=== PATIENT | male | born 1960 | race Caucasian/White ===

== ENCOUNTER → 2017-07-01 | Outpatient (REF) ==
[2014-06-27 16:00] VITALS: BMI 42.4
[~2017-07-01] MED LIST: METO25TA93 PO
== END ==
LOC: AUD 09:40
PROVIDERS: ATTEND Family Medicine
DX: Z01.10 Encounter for examination of ears and hearing without abnormal findings (principal)
CPT/HCPCS: 92552

== ENCOUNTER 2017-12-27 20:59 | Emergency (ER) | payer BC ==
[2014-06-27 16:00] VITALS: Wt 145.2 kg
[2017-12-27] MEDS ORDERED: AMOX-559 PO (21:14)
[2017-12-27] MEDS ORDERED: CARV12.578 PO (21:14)
[2017-12-27] MEDS ORDERED: OXYMETAZOLINE 0.05% 30 ML BTL SCH (21:15)
[2017-12-27] MEDS ORDERED: LIDO/EPI 1% MDV 1:100,000 20ML INFIL ONE (21:16)
[2017-12-27] MEDS ORDERED: LISI5TAB25 PO (21:23)
[2017-12-27] MEDS ORDERED: DRON400T4 PO (21:23)
[2017-12-27] MEDS ORDERED: FURO40TA35 PO (21:23)
[2017-12-27] MEDS ORDERED: SULF-198 PO (21:23)
--- NOTE | 2017-12-27 21:27 | ER Report ---
History and Physical Time Seen By MD: 21:10 Hx. 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 1 episode last night that he was able to stop at home. HPI/ROS CHIEF COMPLAINT: Epistaxis] HISTORY OF PRESENT ILLNESS: Patient presents with ongoing bleed 1 hour. Patient is on Zarrella toe and has been for 1-1/2 years for atrial fibrillation. Patient had not had prior nosebleeds before yesterday. Of note he was recently placed on carvedilol after cardioversion and Bactrim, Augmentin for hand wound. Patient reports bleeding from right naris yesterday and that he was able to control at home. Patient states that he has had bleeding from left naris for the last hour and has not been able to control this at home. Patient believes that he has lost less than 1 cup of blood. He feels mildly lightheaded however does not have chest pain, trouble breathing, headache, and denies recent injury. He denies other bleeding or bruising REVIEW OF SYSTEMS: Constitutional: No fever, no chills. Eyes: No discharge. ENT: No sore throat. Cardiovascular: No chest pain, no palpitations. Respiratory: No cough, no shortness of breath. Gastrointestinal: No abdominal pain, no vomiting. Genitourinary: No hematuria. Musculoskeletal: No back pain. Skin: No rashes. Neurological: No headache. Remainder of the 14 system rev: Yes Allergies: Coded Allergies: No Known Drug Allergies (Unverified , 12/27/17) Home Meds Reported Medications Dronedarone Hcl (MULTAQ) 400 Mg Tablet, 400 MG PO DAILY 12/27/17 Furosemide (LASIX) 40 Mg Tablet, 1 TAB PO DAILY, TAB 12/27/17 Sulfamethoxazole/Trimet 800-160 Mg Tab (BACTRIM DS TABLET) 1 Each Tablet, 1 TAB PO Q12H, TAB 12/27/17 Lisinopril (LISINOPRIL) 5 Mg Tablet, 5 MG PO QDAY, TAB 12/27/17 Carvedilol (CARVEDILOL) 12.5 Mg Tablet, 12.5 MG PO BID, #10 TAB 12/27/17 Amoxicillin/Pot Clav 875-125 Mg Tab (AUGMENTIN 875-125 TABLET) 1 Each Tablet, 1 TAB PO Q12H, TAB 12/27/17 Discontinued Reported Medications Metoprolol Tartrate (METOPROLOL TARTRATE) 25 Mg Tablet, 1 TAB PO DAILY, TAB 12/23/14 Reviewed Nurses Notes: Yes Old Medical Records Reviewed: Yes Hx Smoking: No Constitutional Vital Sign - Last 24 Hours 12/27/17 12/27/17 12/27/17 12/27/17 21:02 21:04 21:04 21:39 Temp 97.9 Pulse 64 65 65 Resp 16 B/P (MAP) 145/84 (104) 145/84 Pulse Ox 90 89 90 O2 Delivery Room Air 12/27/17 12/27/17 21:44 21:47 Pulse 64 Resp 12 B/P (MAP) 135/76 (95) Pulse Ox 90 Physical Exam General Appearance: [The patient is alert, has no immediate need for airway protection and no signs of toxicity.] [ ] Eyes: Pupils equal and round no pallor or injection. ENT, Mouth: Mucous membranes are moist. Pt with brisk venous bleed primarily from left nare. Note blood in r nare. No polyps noted. Bleeding is into post pha rynx but pt tolerating secretions Respiratory: There are no retractions, lungs are clear to auscultation. Cardiovascular: Regular rate and rhythm. Neurological: alert, oriented Skin: Warm and dry, no rashes. Musculoskeletal: Neck is supple non tender. Extremities are nontender, nonswollen and have full range of motion. [ ] DIFFERENTIAL DIAGNOSIS: After history and physical exam differential diagnosis was considered for significant blood loss, coagulopathy, medication interaction or other emergent cause of bleeding. Medical Decision Making Data Points Result Diagram: 12/27/17214312/27/172143 Laboratory Hematology Test 12/27/17 21:44 Red Blood Count 4.52 M/uL (4.00-5.60) Mean Corpuscular Volume 84.9 fL (80.0-96.0) Mean Corpuscular Hemoglobin 29.8 pg (26.0-33.0) Mean Corpuscular Hemoglobin Concent 35.1 g/dL (32.0-36.0) Red Cell Distribution Width 13.7 % (11.5-14.5) Mean Platelet Volume 6.9 fL (7.2-11.1) Neutrophils (%) (Auto) 68.5 % (39.4-72.5) Lymphocytes (%) (Auto) 14.4 % (17.6-49.6) Monocytes (%) (Auto) 10.2 % (4.1-12.4) Eosinophils (%) (Auto) 4.1 % (0.4-6.7) Basophils (%) (Auto) 2.8 % (0.3-1.4) Nucleated RBC Relative Count (auto) 0.1 /100WBC Neutrophils # (Auto) 3.1 K/uL (2.0-7.4) Lymphocytes # (Auto) 0.6 K/uL (1.3-3.6) Monocytes # (Auto) 0.5 K/uL (0.3-1.0) Eosinophils # (Auto) 0.2 K/uL (0.0-0.5) Basophils # (Auto) 0.1 K/uL (0.0-0.1) Nucleated RBC Absolute Count (auto) 0.00 K/uL Prothrombin Time 15.8 seconds (12.0-14.4) Prothromb Time International Ratio 1.25 Activated Partial Thromboplast Time 40 seconds (23-35) Sodium Level 139 mmol/L (137-145) Potassium Level 3.9 mmol/L (3.5-5.0) Chloride Level 106 mmol/L (98-107) Carbon Dioxide Level 23 mmol/L (22-30) Blood Urea Nitrogen 20 mg/dl (9-21) Creatinine 1.30 mg/dl (0.66-1.25) Glomerular Filtration Rate Calc 56.9 Random Glucose 101 mg/dl (75-110) Calcium Level 9.5 mg/dl (8.4-10.2) Chemistry Test 12/27/17 21:44 White Blood Count 4.5 k/uL (4.5-11.0) Red Blood Count 4.52 M/uL (4.00-5.60) Hemoglobin 13.5 g/dL (14.0-18.0) Hematocrit 38.4 % (42.0-52.0) Mean Corpuscular Volume 84.9 fL (80.0-96.0) Mean Corpuscular Hemoglobin 29.8 pg (26.0-33.0) Mean Corpuscular Hemoglobin Concent 35.1 g/dL (32.0-36.0) Red Cell Distribution Width 13.7 % (11.5-14.5) Platelet Count 165 K/uL (150-450) Mean Platelet Volume 6.9 fL (7.2-11.1) Neutrophils (%) (Auto) 68.5 % (39.4-72.5) Lymphocytes (%) (Auto) 14.4 % (17.6-49.6) Monocytes (%) (Auto) 10.2 % (4.1-12.4) Eosinophils (%) (Auto) 4.1 % (0.4-6.7) Basophils (%) (Auto) 2.8 % (0.3-1.4) Nucleated RBC Relative Count (auto) 0.1 /100WBC Neutrophils # (Auto) 3.1 K/uL (2.0-7.4) Lymphocytes # (Auto) 0.6 K/uL (1.3-3.6) Monocytes # (Auto) 0.5 K/uL (0.3-1.0) Eosinophils # (Auto) 0.2 K/uL (0.0-0.5) Basophils # (Auto) 0.1 K/uL (0.0-0.1) Nucleated RBC Absolute Count (auto) 0.00 K/uL Prothrombin Time 15.8 seconds (12.0-14.4) Prothromb Time International Ratio 1.25 Activated Partial Thromboplast Time 40 seconds (23-35) Glomerular Filtration Rate Calc 56.9 Calcium Level 9.5 mg/dl (8.4-10.2) Coagulation Test 12/27/17 21:44 Prothrombin Time 15.8 seconds Prothromb Time International Ratio 1.25 Activated Partial Thromboplast Time 40 seconds ED Course/Re-evaluation ED Course Patient presents with brisk epistaxis. This is [place] by the fact he is on xarelto as well as having been started on Multaq 2 days ago as he had cardioversion. Of note, mild tach can't increased bleeding from Xarelto. In ED after administration of Afrin infused with 2 mL's of 1% lidocaine and epi, patient ultimately has control of epistaxis. On my reevaluation, there is no active bleeding, no polyps, and no anterior area that can be cauterized. I offered nasal packing due to risk for ongoing bleeding versus discharge and return if he has uncontrolled bleeding. Patient refuses packing at this point. I consult it patient's cardiology group for recommendation regarding medication interaction, and slight coagulopathy that is noted on labs. On-call timber feller recommended holding xarelto after discussion of risks and benefits with patient, which I did and follow-up with ENT for evaluation for possible cautery. After ENT evaluation and possible cautery, cardiology recommends that patient restart on Xarelto if he has not had further epistaxis. Patient understands this will follow-up with ENT and cardiology. Decision to Disposition Date: Dec 27, 2017 Decision to Disposition Time: 22:39 Depart Departure Latest Vital Signs Vital Signs Date Time Temp Pulse Resp B/P (MAP) Pulse Ox O2 Delivery O2 Flow Rate FiO2 12/27/17 21:47 135/76 (95) 12/27/17 21:44 64 12 90 12/27/17 21:04 97.9 Room Air Impression: Primary Impression: Epistaxis Additional Impression: Coagulopathy Condition: Improved Disposition: HOME OR SELF-CARE Referrals: LAMINE BERRIOS MD (PCP) SKIP FARIAS JR, MD [address] Farias, ENT's clinic friday for follow up and determination of need for cautery Patient Instructions: Nosebleed (ED) Additional Instructions: Return immediately for uncontrolled bleeding or any concerns. As we discussed, follow-up with ENT. Call Friday for appointment to evaluate if you need cautery. As discussed with the timber feller, I recommend you hold Xarelto until evaluated by ENT. If you're unable to see ENT by next Friday and have not had further nosebleeds, he may restart Xarelto. I also recommend he call your timber feller on Friday to have a follow-up and determine if there is a better combination of medications to be on. Problem Qualifiers KATE LEWIS MD Dec 27, 2017 21:27
[2017-12-27 21:54] LABS: PLATELET COUNT, AUTOMATED 165 K/uL (150-450)
[2017-12-27 22:02] LABS: INR 1.25
[2017-12-27 22:30] VITALS: BP 132/74
== END 2017-12-27 22:47 | disposition home or self-care (01) ==
LOC: ER 21:21
DX: R04.0 Epistaxis (principal); Z79.01 Long term (current) use of anticoagulants
CPT/HCPCS: 36415; 82310; 82374; 82435; 82565; 82947; 84132; 84295; 84520; 85025; 85610; 85730; 99283

== ENCOUNTER → 2018-06-16 | Outpatient (REF) ==
[2014-06-27 16:00] VITALS: BMI 42.4
[~2018-06-16] MED LIST changes: +AMOX-559 PO; +CARV12.578 PO; +DRON400T4 PO; +FURO40TA35 PO; +LISI5TAB25 PO; +SULF-198 PO
== END ==
LOC: AUD 13:45
PROVIDERS: ATTEND Family Medicine
DX: Z01.12 Encounter for hearing conservation and treatment (principal)
CPT/HCPCS: 92552

== ENCOUNTER → 2018-10-06 | Outpatient (CLI) | payer BC ==
[2014-06-27 16:00] VITALS: BMI 42.4
[~2018-10-06] MED LIST changes: +APIX5TAB PO; +BUDE90AE2 IH; +BUME2TAB17 PO
== END ==
LOC: LAB 15:15
PROVIDERS: ATTEND Internal Medicine Sleep Medicine
DX: D86.9 Sarcoidosis, unspecified (principal)
CPT/HCPCS: 36415; 86038; 86140; 86200; 86255; 86430; 86480

== ENCOUNTER 2018-10-08 17:08 | Emergency (ER) | payer BC ==
[2014-06-27 16:00] VITALS: Wt 148.8 kg
[~2018-10-08 17:08] MED LIST changes: -APIX5TAB PO; -BUDE90AE2 IH; -BUME2TAB17 PO
[2018-10-08] MEDS ORDERED: ASPIRIN 81 MG CHEW PO ONE (17:20)
--- NOTE | 2018-10-08 17:21 | EKG ---
[place]AC[place] [facility] [place]IENT NAME: RG WOLF : [id number] MR: [id number] V: [id number] EXAM DATE: ORDERING PHYSICIAN: WENDI DIEGO TECHNOLOGIST: PATRICIA Tran Reason : CP Blood Pressure : / mmHG Vent. Rate : 106 BPM Atrial Rate : 106 BPM P-R Int : 124 ms QRS Dur : 178 ms QT Int : 402 ms P-R-T Axes : 043 037 -24 degrees QTc Int : 533 ms Electronic ventricular pacemaker No previous ECGs available Confirmed by Bruce Davis ([id number]) on 10/08/2018 8:26:56 PM Referred By: JOHNATHON Confirmed By:Bruce Jorgensen
[2018-10-08] MEDS ORDERED: BUME2TAB17 PO (17:25)
[2018-10-08] MEDS ORDERED: APIX5TAB PO (17:25)
[2018-10-08] MEDS ORDERED: BUDE90AE2 IH (17:25)
[2018-10-08 17:33] LABS: PLATELET COUNT, AUTOMATED 229 K/uL (150-450)
[2018-10-08] MEDS ORDERED: MORPHINE 4 MG/ML SDV IVP ONE (17:45)
--- NOTE | 2018-10-08 18:03 | RADIOLOGY IMAGING REPORT ---
FACILITY: [facility] - [place] PATIENT NAME: Julian Mario : 1960 MR: [id number] V: [id number] EXAM DATE: ORDERING PHYSICIAN: WENDI DIEGO TECHNOLOGIST: Location: [facility] - [place] Patient: Julian Mario : 1960 Visit/Account:[id number] Date of Sevice: 10/08/2018 CHEST PA LAT COMPARISONS: None. ADDITIONAL PERTINENT HISTORY: Shortness of breath chest pain FINDINGS: Cardiomediastinal silhouette: Dual lead right-sided cardiac pacemaker. Otherwise negative Pulmonary vasculature: Findings concerning for pulmonary edema. Lung goodwin: Negative. Pleural spaces: Negative. Osseous structures: Mild spondylitic change involving the thoracic spine. Surrounding soft tissues: Negative. IMPRESSION: 1. Findings concerning for underlying pulmonary edema. Report Dictated By: Austyn Gray MD at 10/08/2018 5:56 PM Report E-Signed By: Austyn Gray MD at 10/08/2018 5:57 PM WSN:[id number]
[2018-10-08] MEDS ORDERED: POTASSIUM CHL 20 MEQ TABCR PO ONE (18:55)
[2018-10-08] MEDS ORDERED: methylPREDNIS SUCC 125 MG/2ML IVP ONE (19:30)
--- NOTE | 2018-10-08 19:32 | ER Report ---
History and Physical Time Seen By MD: 15:00 Hx. 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 He presents with chest pain for 1-2 days, a cough for 3 weeks, and worsening SOB. Has a pacemaker. Had a pulmonary biopsy recently, and said his cough has worsened since the biopsy. Takes Bumex and states that he has not been urinating as much the past 2 days. Also complains of palpitations. Remainder of the 14 system rev: Yes Allergies: Coded Allergies: No Known Drug Allergies (Unverified , 10/08/18) Home Meds Reported Medications Budesonide (PULMICORT FLEXHALER) 90 Mcg Aer.pow.ba, 180 MCG IH BID, MCG 10/08/18 Apixaban (ELIQUIS) 5 Mg Tablet, 5 MG PO QDAY 10/08/18 Bumetanide (BUMETANIDE) 2 Mg Tab, 2 MG PO QDAY, TAB 10/08/18 Lisinopril (LISINOPRIL) 5 Mg Tablet, 5 MG PO BID, TAB 12/27/17 Carvedilol (CARVEDILOL) 12.5 Mg Tablet, 12.5 MG PO BID, #10 TAB 12/27/17 Discontinued Reported Medications Dronedarone Hcl (MULTAQ) 400 Mg Tablet, 400 MG PO DAILY 12/27/17 Furosemide (LASIX) 40 Mg Tablet, 1 TAB PO DAILY, TAB 12/27/17 Sulfamethoxazole/Trimet 800-160 Mg Tab (BACTRIM DS TABLET) 1 Each Tablet, 1 TAB PO Q12H, TAB 12/27/17 Amoxicillin/Pot Clav 875-125 Mg Tab (AUGMENTIN 875-125 TABLET) 1 Each Tablet, 1 TAB PO Q12H, TAB 12/27/17 Reviewed Nurses Notes: Yes Old Medical Records Reviewed: Yes Hx Smoking: No Constitutional Vital Sign - Last 24 Hours 10/08/18 10/08/18 10/08/18 10/08/18 17:08 17:11 17:18 17:38 Temp 99.6 Pulse ??? 109 102 Resp 22 B/P (MAP) 151/87 (108) 151/87 Pulse Ox 89 88 O2 Delivery Room Air 10/08/18 10/08/18 10/08/18 17:53 18:00 18:06 Pulse 103 B/P (MAP) 149/94 (112) 150/88 (108) Pulse Ox 87 Physical Exam General Appearance: The patient is alert, has no immediate need for airway protection and no current signs of toxicity. Eyes: Pupils equal and round no injection. Respiratory: Chest is non tender, there is decreased air movement throughout. Cardiac: regular rate and rhythm Gastrointestinal: Abdomen is soft and non tender, no masses, bowel sounds normal. Extremities have full range of motion and are non tender. Skin: No rashes or lesions. DIFFERENTIAL DIAGNOSIS: After history and physical exam differential diagnosis was considered for shortness of breath including but not limited to pulmonary infectious process, COPD, asthma, pulmonary embolus and congestive heart failure. Medical Decision Making Data Points Result Diagram: 10/08/18 1724 10/08/18 1724 Laboratory Hematology Test 10/08/18 17:24 10/08/18 19:52 Red Blood Count 4.95 M/uL (4.00-5.60) Mean Corpuscular Volume 83.3 fL (80.0-96.0) Mean Corpuscular Hemoglobin 29.8 pg (26.0-33.0) Mean Corpuscular Hemoglobin Concent 35.8 g/dL (32.0-36.0) Red Cell Distribution Width 13.9 % (11.5-14.5) Mean Platelet Volume 6.7 fL (7.2-11.1) Neutrophils (%) (Auto) 75.7 % (39.4-72.5) Lymphocytes (%) (Auto) 12.6 % (17.6-49.6) Monocytes (%) (Auto) 9.9 % (4.1-12.4) Eosinophils (%) (Auto) 1.6 % (0.4-6.7) Basophils (%) (Auto) 0.2 % (0.3-1.4) Nucleated RBC Relative Count (auto) 0.4 /100WBC Neutrophils # (Auto) 5.4 K/uL (2.0-7.4) Lymphocytes # (Auto) 0.9 K/uL (1.3-3.6) Monocytes # (Auto) 0.7 K/uL (0.3-1.0) Eosinophils # (Auto) 0.1 K/uL (0.0-0.5) Basophils # (Auto) 0.0 K/uL (0.0-0.1) Nucleated RBC Absolute Count (auto) 0.03 K/uL D-Dimer Quantitative (PE/DVT) 0.40 ug/ml (0-0.50) Sodium Level 141 mmol/L (137-145) Potassium Level 3.3 mmol/L (3.5-5.0) Chloride Level 100 mmol/L (98-107) Carbon Dioxide Level 29 mmol/L (22-30) Blood Urea Nitrogen 21 mg/dl (9-21) Creatinine 1.00 mg/dl (0.66-1.25) Glomerular Filtration Rate Calc > 60.0 Random Glucose 166 mg/dl (75-110) Calcium Level 9.7 mg/dl (8.4-10.2) Total Bilirubin 0.5 mg/dl (0.2-1.3) Aspartate Amino Transf (AST/SGOT) 27 U/L (0-35) Alanine Aminotransferase (ALT/SGPT) 39 U/L (0-56) Alkaline Phosphatase 114 U/L (0-126) B-Type Natriuretic Peptide 21 pg/ml (0-100) Total Protein 7.9 g/dl (6.3-8.2) Albumin 4.5 g/dl (3.5-5.0) Troponin I < 0.012 ng/ml Chemistry Test 10/08/18 17:24 10/08/18 19:52 White Blood Count 7.1 k/uL (4.5-11.0) Red Blood Count 4.95 M/uL (4.00-5.60) Hemoglobin 14.8 g/dL (14.0-18.0) Hematocrit 41.3 % (42.0-52.0) Mean Corpuscular Volume 83.3 fL (80.0-96.0) Mean Corpuscular Hemoglobin 29.8 pg (26.0-33.0) Mean Corpuscular Hemoglobin Concent 35.8 g/dL (32.0-36.0) Red Cell Distribution Width 13.9 % (11.5-14.5) Platelet Count 229 K/uL (150-450) Mean Platelet Volume 6.7 fL (7.2-11.1) Neutrophils (%) (Auto) 75.7 % (39.4-72.5) Lymphocytes (%) (Auto) 12.6 % (17.6-49.6) Monocytes (%) (Auto) 9.9 % (4.1-12.4) Eosinophils (%) (Auto) 1.6 % (0.4-6.7) Basophils (%) (Auto) 0.2 % (0.3-1.4) Nucleated RBC Relative Count (auto) 0.4 /100WBC Neutrophils # (Auto) 5.4 K/uL (2.0-7.4) Lymphocytes # (Auto) 0.9 K/uL (1.3-3.6) Monocytes # (Auto) 0.7 K/uL (0.3-1.0) Eosinophils # (Auto) 0.1 K/uL (0.0-0.5) Basophils # (Auto) 0.0 K/uL (0.0-0.1) Nucleated RBC Absolute Count (auto) 0.03 K/uL D-Dimer Quantitative (PE/DVT) 0.40 ug/ml (0-0.50) Glomerular Filtration Rate Calc > 60.0 Calcium Level 9.7 mg/dl (8.4-10.2) Total Bilirubin 0.5 mg/dl (0.2-1.3) Aspartate Amino Transf (AST/SGOT) 27 U/L (0-35) Alanine Aminotransferase (ALT/SGPT) 39 U/L (0-56) Alkaline Phosphatase 114 U/L (0-126) B-Type Natriuretic Peptide 21 pg/ml (0-100) Total Protein 7.9 g/dl (6.3-8.2) Albumin 4.5 g/dl (3.5-5.0) Troponin I < 0.012 ng/ml Coagulation Test 10/08/18 17:24 D-Dimer Quantitative (PE/DVT) 0.40 ug/ml ED Course/Re-evaluation ED Course I do not think his chest pain is cardiac in nature. He has 2 negative troponins after almost 24 hours of constant chest pain. His cough is likely multi- factorial with a combination of newly diagnosed sarcoid and pulmonary edema. He is also tachycardiac with a HR 90-100. His normal HR is in the 60s. He was given IV steroids and a dose of IV Lasix. 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 I spoke with the hip hop dancer and hospitalist at [facility], and he will be admitted. He had a nrgative d-dimer and is on Xarelto, so PE unlikely. Decision to Disposition Date: Oct 08, 2018 Decision to Disposition Time: 21:12 Depart Departure Latest Vital Signs Vital Signs Date Time Temp Pulse Resp B/P (MAP) Pulse Ox O2 Delivery O2 Flow Rate FiO2 10/08/18 18:06 103 87 10/08/18 18:00 150/88 (108) 10/08/18 17:18 99.6 22 Room Air Impression: Primary Impression: Pulmonary edema Condition: Improved Disposition: XFER TO [facility] Referrals: LAMINE BERRIOS MD (PCP) Problem Qualifiers Primary Impression: Pulmonary edema Chronicity: acute Qualified Codes: J81.0 - Acute pulmonary edema LUBA LEWIS MD Oct 08, 2018 19:32
[2018-10-08] MEDS ORDERED: FUROSEMIDE 40 MG/4 ML VIAL IVP ONE (19:50)
[2018-10-08] MEDS: KCL 20 MEQ/50 ML PREMIX 50 ML IV SCH ×2 (20:05→21:05)
[2018-10-08] MEDS ORDERED: KCL (*) 20 MEQ/100 ML PREMIX 100 ML ONE (20:07)
[2018-10-08] MEDS: NS(*) 0.9% 250 ML BAG 250 ML IV SCH ×3 (20:14→22:05)
[2018-10-08] MEDS ORDERED: KETOROLAC 30 MG/ML VIAL IVP ONE (20:35)
[2018-10-08 21:41] VITALS: BP 145/100
[2018-10-08] MEDS ORDERED: fentaNYL CITR 100 MCG/2 ML AMP ONE (21:50)
--- NOTE | 2018-10-08 22:44 | EKG ---
[place] [facility] [place] RG WOLF : [id number] MR: [id number] V: [id number] EXAM DATE: ORDERING PHYSICIAN: LUBA LEWIS TECHNOLOGIST: ADITHYA Tran Reason : CP Blood Pressure : / mmHG Vent. Rate : 090 BPM Atrial Rate : 090 BPM P-R Int : 110 ms QRS Dur : 176 ms QT Int : 452 ms P-R-T Axes : 038 040 -10 degrees QTc Int : 552 ms Electronic ventricular pacemaker When compared with ECG of 08-OCT-2018 17:09, Vent. rate has decreased BY 16 BPM Confirmed by Bruce Davis ([id number] on 10/09/2018 7:52:26 AM Referred By: Confirmed By:Bruce Jorgensen
== END 2018-10-08 21:59 | disposition short-term general hospital (02) ==
LOC: ER 17:33
DX: J81.0 Acute pulmonary edema (principal)
CPT/HCPCS: 71046; 83880; 84484; 85025; 85379; 93005; 96361; 96365; 96375; 99285; J1885; J1940; J2930; J3010; J3480; J7050; 82040; 82247; 82310; 82374; 82435; 82565; 82947; 84075; 84132; 84155; 84295; 84450; 84460; 84520

== ENCOUNTER → 2018-10-08 | Outpatient (CLI) | payer BC ==
[2014-06-27 16:00] VITALS: BMI 42.4
== END ==
LOC: AMB 21:33
PROVIDERS: ATTEND Nurse Practitioner
DX: I50.9 Heart failure, unspecified (principal); J44.9 Chronic obstructive pulmonary disease, unspecified
CPT/HCPCS: A0425; A0426

== ENCOUNTER → 2018-11-13 | Outpatient (CLI) | payer BC ==
[2014-06-27 16:00] VITALS: BMI 42.4
[~2018-11-13] MED LIST changes: +APIX5TAB PO; +BARIUM SULFATE 176 GM BTL PO ONE; +BARIUM SULFATE 340 GM POWD ONE; +BUDE90AE2 IH; +BUME2TAB17 PO
--- NOTE | 2018-11-13 14:56 | RADIOLOGY IMAGING REPORT ---
FACILITY: [facility] - [place] PATIENT NAME: Julian Mario : 1960 MR: [id number] V: [id number] EXAM DATE: ORDERING PHYSICIAN: NATASHA CURTIS TECHNOLOGIST: Location: [facility] Patient: Julian Mario : 1960 Visit/Account:[id number] Date of Sevice: 11/13/2018 Exam type: ESOPHAGRAM History: Dysphasia Comparison: Two-view chest October 08, 2018. Findings: Pulmonary lockstitch hemmer film of the chest reveals prominent central pulmonary arteries which can be seen with pulmonary arterial hypertension. There is a dual lead cardiac pacemaker. There is interstitial pro minence of the lungs and extra appears less prominent when compared to the prior chest October 08, 2018. Double contrast esophagram was performed with thick and thin barium and air contrast there is a small hiatal hernia with a large amount of gastroesophageal reflux observed. There was no evidence of sig nificant esophageal stricture or mucosal erosion. The dose area product is 552.95 micro-Bryan per met er squared IMPRESSION: 1. Small hiatal hernia with a large amount of gastroesophageal reflux although no significant strict ure or mucosal erosion. Report Dictated By: Carisa Cornell MD at 11/13/2018 2:44 PM Report E-Signed By: Carisa Cornell MD at 11/13/2018 2:48 PM WSN:[id number]
== END ==
LOC: RAD 11-09 01:05
PROVIDERS: ATTEND Internal Medicine Sleep Medicine
DX: K44.9 Diaphragmatic hernia without obstruction or gangrene (principal); K21.9 Gastro-esophageal reflux disease without esophagitis
CPT/HCPCS: 74220